=== PATIENT | male | born 1960 | race Caucasian/White ===

== ENCOUNTER → 2018-08-15 11:44 | Outpatient (CLI) | payer OTHER, SELFPAY ==
--- NOTE | 2018-08-15 11:49 | CI_ITS ---
Cerebrovascular Exam Indications: 433.10 Occlusion/stenosis of carotid artery without cerebral infarction. IMPRESSIONS 1. The bilateral vertebral arteries are patent with normal antegrade flow. 2. Study suggests less than 20% stenosis involving the right internal carotid artery and the left internal carotid artery. No change from the study of 09-Feb-2017. History: Coronary artery disease. Risk factors: Hypertension. Hyperlipidemia. Carotid duplex study. Complete study and Doppler flow study including spectral analysis, color and fulton scale imaging. Height: Height: 175.3cm. Height: 69in. Weight: Weight: 83.9kg. Weight: 184.6lb. Body mass index: BMI: 27.3kg/m^2. Body surface area: BSA: 2.04m^2. Location: Vascular laboratory. Patient status: Outpatient. Tables: Arterial flow: + +--------+--------+ Location V sys V ed + +--------+--------+ Right CCA - proximal 84.1cm/s 18.9cm/s + +--------+--------+ Right CCA - distal 61.3cm/s 19.6cm/s + +--------+--------+ Right ECA 64.4cm/s -------- + +--------+--------+ Right ICA - proximal 66.8cm/s 23.6cm/s + +--------+--------+ Right ICA - mid 81.7cm/s 32.2cm/s + +--------+--------+ Right ICA - distal 104cm/s 40.1cm/s + +--------+--------+ Right vertebral 44cm/s -------- + +--------+--------+ Left CCA - proximal 77.8cm/s 20.4cm/s + +--------+--------+ Left CCA - distal 72.3cm/s 16.5cm/s + +--------+--------+ Left ECA 73.1cm/s -------- + +--------+--------+ Left ICA - proximal 48.7cm/s 15.7cm/s + +--------+--------+ Left ICA - mid 55cm/s 18.1cm/s + +--------+--------+ Left ICA - distal 80.1cm/s 25.1cm/s + +--------+--------+ Left vertebral 41.6cm/s -------- + +--------+--------+ Velocity ratios: + + + + + + Right, V sys Right, V ed Left, V sys Left, V ed + + + + + + Max ICA/dist CCA 1.7 2.05 1.11 1.52 + + + + + + (Report amended ) Electronically signed by: Clarke Cintron [id number]
== END ==
PROVIDERS: Visit Provider Urology
DX: I65.23 Occlusion and stenosis of bilateral carotid arteries (principal); E78.49 Other hyperlipidemia; I11.9 Hypertensive heart disease without heart failure; I25.10 Atherosclerotic heart disease of native coronary artery without angina pectoris; R94.31 Abnormal electrocardiogram [ECG] [EKG]
CPT/HCPCS: 93880

== ENCOUNTER → 2022-01-26 10:57 | Outpatient (CLI) | payer OTHER, SELFPAY ==
--- NOTE | 2022-01-26 10:59 | US_ITS ---
FINAL REPORT CLINICAL HISTORY: BILATERAL REST PAIN,DM,HTN,HLD,CAD,EX SMOKER FINDINGS: ANKLE-BRACHIAL PRESSURE INDICES Pressure indices are as follows: RIGHT LOWER EXTREMITY: Ankle-brachial pressure index: 1.2 Comments: Normal LEFT LOWER EXTREMITY: Ankle-brachial pressure index: 1.2 Comments: Normal CONCLUSION: No evidence of significant obstructive peripheral vascular disease of the lower extremities Reviewed, Interpreted and Dictated by Bennett Ryan MD Transcribed by Ai Heredia Authenticated and [facility]
== END ==
PROVIDERS: PCP Internal Medicine; Visit Provider Nurse Practitioner
DX: I73.9 Peripheral vascular disease, unspecified (principal)
CPT/HCPCS: 93923

== ENCOUNTER → 2022-05-27 13:46 | Outpatient (CLI) | payer OTHER, SELFPAY ==
[2022-05-27 14:38] LABS: Basophils # 0.1 K/mm3 (0-0.2); Basophils % 0.9 % (0.1-2.0); Eosinophils # 0.2 K/mm3 (0.0-0.4); Eosinophils % 2.8 % (0.1-12.0); Hematocrit 41.3 % (42.0-52.0); Hemoglobin 13.3 g/dL (14.1-18.0); Lymphocytes # 2.6 K/mm3 (0.7-4.5); Lymphocytes % 39.6 % (10-50); Mean Corpuscular HGB Conc 32.1 g/dL (31.8-35.4); Mean Corpuscular Hemoglobin 27.3 pg (27.0-31.2); Mean Corpuscular Volume 84.9 fl (80-94); Mean Platelet Volume 9.2 fl (7.4-10.4); Monocytes # 0.5 K/mm3 (0.1-1.0); Monocytes % 7.4 % (1.7-9.3); Neutrophils # 3.3 K/mm3 (1.8-7.8); Neutrophils % 49.3 % (37.0-80.0); Platelet Count 278 K/mm3 (142-424); Red Blood Count 4.86 M/mm3 (4.60-6.20); Red Cell Distribution Width 14.6 % (11.5-17.5); White Blood Count 6.7 K/mm3 (4.8-10.8)
[2022-05-27 15:48] LABS: Alanine Aminotransferase 51 U/L (12-78); Albumin Level 4.6 g/dl (3.5-5.0); Alkaline Phosphatase 92 U/L (38-126); Anion Gap 15.6 mEq/L (5-15); Aspartate Amino Transferase 50 U/L (17-59); Bilirubin,Direct 0.2 mg/dl (0.0-0.4); Bilirubin,Indirect 0.6 mg/dL (0.0-0.9); Bilirubin,Total 0.8 mg/dl (0.2-1.3); Bilirubin,Unconjugated 0.6 mg/dL (0.0-1.1); Blood Urea Nitrogen 13 mg/dl (9-20); Calcium 10.2 mg/dl (8.4-10.2); Carbon Dioxide 26 mmol/L (22.0-30.0); Chloride 102 mmol/L (98-107); Chol/HDL Ratio 3.9 (1-3.5); Cholesterol 133 mg/dl (140-200); Estimated Glomerular Filt Rate 68 ml/min (>60); GFR (African American) 82 ML/MIN (>60); Glucose 228 mg/dl (74-100); HDL Cholesterol 34 mg/dl (40-60); Magnesium 1.7 mg/dl (1.6-2.3); Potassium 4.6 mmoL/L (3.5-5.1); Sodium 139 mmol/L (136-145); Total Protein,Serum 7.3 g/dl (6.3-8.2); Triglycerides 153 mg/dl (30-150); VLDL Cholesterol 31 mg/dL (0-40)
[2022-05-27 16:04] LABS: Free T4 (Free Thyroxine) 1.49 ng/dl (0.78-2.19)
[2022-05-27 16:18] LABS: Thyroid Stimulating Hormone 2.55 uIU/mL (0.465-4.68)
== END ==
PROVIDERS: PCP Family Medicine; Visit Provider Nurse Practitioner
DX: I25.10 Atherosclerotic heart disease of native coronary artery without angina pectoris (principal); I11.9 Hypertensive heart disease without heart failure; E11.9 Type 2 diabetes mellitus without complications; E78.2 Mixed hyperlipidemia; I65.23 Occlusion and stenosis of bilateral carotid arteries; R94.31 Abnormal electrocardiogram [ECG] [EKG]; Z79.84 Long term (current) use of oral hypoglycemic drugs
CPT/HCPCS: 36415; 80048; 80061; 80076; 83735; 84439; 84443; 85025